=== PATIENT | male | born 1970 | race Caucasian/White ===

== ENCOUNTER → 2024-04-12 15:01 | Outpatient (REF) | payer BC, SELFPAY | LOC: RAD 15:01 | PROVIDERS: ATTENDING PHYSICIAN Family Medicine | DX: Z76.89 Persons encountering health services in other specified circumstances (principal); H53.8 Other visual disturbances; H53.142 Visual discomfort, left eye; R42 Dizziness and giddiness | CPT/HCPCS: 93880 ==

== ENCOUNTER → 2024-05-09 07:28 | Outpatient (REF) | payer BC, SELFPAY | LOC: PAVMRI 07:28 | PROVIDERS: ATTENDING PHYSICIAN Family Medicine | DX: H53.8 Other visual disturbances (principal); Z76.89 Persons encountering health services in other specified circumstances | CPT/HCPCS: 70551 ==